=== PATIENT | female | born 1950 | race Caucasian/White ===

== ENCOUNTER 2021-08-28 12:41 | Day surgery (SDC) | payer MEDICARE ==
[~2021-08-28] VITALS: Ht 162.6 cm; Wt 63.0 kg
[~2021-08-28 12:41] MED LIST: AMLO10 PO; Advil200 M1 PO; BISHYD10 PO; LEVSOD75 PO; LISI20 PO; PRAV20
--- NOTE | 2021-08-28 16:44 | NUR ---
08/28/21 1644 Norma Verdugo PT RATING PAIN TO FINGER AT 5/10. ANESTHESIA ORDERS ONLY FOR MILD PAIN. ATTEMPTED TO CALL DR. ESPINAL, BUT DID NOT GET AN ANSWER. GAVE ORDERED DOSE OF FENTANYL 12.5 MCG IV X1 FOR PAIN. PAIN DOWN TO 3/10 PRIOR TO DISCHARGE.
== END 2021-08-28 16:38 | disposition home or self-care (01) ==
LOC: ORSCSDS 12:41
PROVIDERS: Orthopaedic Surgery
PROC: 0PSV04Z Reposition Left Finger Phalanx with Internal Fixation Device, Open Approach (ICD-10-PCS; principal; 2021-08-28 14:00)
DX: S62.617A Displaced fracture of proximal phalanx of left little finger, initial encounter for closed fracture (principal); I10 Essential (primary) hypertension; E03.9 Hypothyroidism, unspecified; E78.00 Pure hypercholesterolemia, unspecified; Z79.899 Other long term (current) drug therapy
CPT/HCPCS: A9270; J0690; J1100; J2405; J3010; J7120

== ENCOUNTER 2022-12-14 08:57 | Day surgery (SDC) | payer MEDICARE ==
[~2022-12-14] VITALS: Ht 160 cm; Wt 61.3 kg
== END 2022-12-14 11:42 | disposition home or self-care (01) ==
LOC: ORSCSDS 08:57
PROVIDERS: Surgery
PROC: 0DJD8ZZ Inspection of Lower Intestinal Tract, Via Natural or Artificial Opening Endoscopic (ICD-10-PCS; principal; 2022-12-14 10:30)
DX: Z12.11 Encounter for screening for malignant neoplasm of colon (principal); Z86.010 Personal history of colon polyps; I10 Essential (primary) hypertension; E78.5 Hyperlipidemia, unspecified; E03.9 Hypothyroidism, unspecified; Z79.899 Other long term (current) drug therapy
CPT/HCPCS: J2704; J7120

== ENCOUNTER 2024-09-19 07:34 | Day surgery (SDC) | payer MEDICARE ==
[~2024-09-19] VITALS: Ht 160 cm; Wt 61.1 kg
[~2024-09-19 07:34] MED LIST changes: +Balanced Salt Epinephrine Irrigation Solution 500 mL IR SCH; +Lidocaine HCl/Pf 1% 5 ML VIAL XX SCH; +Moxifloxacin HCL 0.5 MG/0.1 ML 0.4MLSYR LEFTEYE SCH; +PHENYLEPHRINE\\TROPICAMIDE\\TETRACAINE OPHTHALMIC DILATING SOLN LEFTEYE PRN; +Povidone-Iodine 450 DROP/30 ML Solution LEFTEYE SCH; +Povidone-Iodine 450 DROP/30 ML Solution ONE; +Tetracaine HCl/Pf 0.5% Opth Soln 4 ml ONE; +Triamcinolone Inj Susp 40 MG / ML 1ML Vial INJ SCH; +Triamcinolone Inj Susp 40 MG / ML 1ML Vial ONE
[2024-09-19 09:27] VITALS: BP 159/63
== END 2024-09-19 09:44 | disposition home or self-care (01) ==
LOC: ORSCSDS 07:34
PROVIDERS: Ophthalmology
PROC: 08RK3JZ Replacement of Left Lens with Synthetic Substitute, Percutaneous Approach (ICD-10-PCS; principal; 2024-09-19 09:00)
DX: H25.813 Combined forms of age-related cataract, bilateral (principal); I10 Essential (primary) hypertension; E03.9 Hypothyroidism, unspecified; Z79.899 Other long term (current) drug therapy
CPT/HCPCS: J3301; V2632

== ENCOUNTER 2024-09-26 09:08 | Day surgery (SDC) | payer MEDICARE ==
[~2024-09-26] VITALS: Ht 160 cm; Wt 60.8 kg
[~2024-09-26 09:08] MED LIST changes: -Moxifloxacin HCL 0.5 MG/0.1 ML 0.4MLSYR LEFTEYE SCH; +Moxifloxacin HCL 0.5 MG/0.1 ML 0.4MLSYR RIGHTEYE SCH; -PHENYLEPHRINE\\TROPICAMIDE\\TETRACAINE OPHTHALMIC DILATING SOLN LEFTEYE PRN; +PHENYLEPHRINE\\TROPICAMIDE\\TETRACAINE OPHTHALMIC DILATING SOLN RIGHTEYE PRN; -Povidone-Iodine 450 DROP/30 ML Solution LEFTEYE SCH; +Povidone-Iodine 450 DROP/30 ML Solution RIGHTEYE SCH
[2024-09-26] MEDS ORDERED: Diazepam 2 MG Tab ONE (09:48)
--- NOTE | 2024-09-26 09:54 | NUR ---
09/26/24 0954 Ginger Thapa TAKEN AT 0830, PT RATED 3-4/10 AND STATED CALM AND SLEEPY. AFTER DISCUSSION WITH DR. LACKEY VALIUM 2MG GIVEN PO
--- NOTE | 2024-09-26 11:06 | NUR ---
09/26/24 1106 Thad Dugan PT INSTRUCTED TO MONITOR B/P AT HOME, AND FOLLOW UP WITH PCP NEEDED.
[2024-09-26 11:07] VITALS: BP 165/67
== END 2024-09-26 10:58 | disposition home or self-care (01) ==
LOC: ORSCSDS 09:08
PROVIDERS: Ophthalmology
PROC: 08RJ3JZ Replacement of Right Lens with Synthetic Substitute, Percutaneous Approach (ICD-10-PCS; principal; 2024-09-26 10:30)
DX: H25.811 Combined forms of age-related cataract, right eye (principal); Z96.1 Presence of intraocular lens; E03.9 Hypothyroidism, unspecified; I10 Essential (primary) hypertension; E78.5 Hyperlipidemia, unspecified; Z79.899 Other long term (current) drug therapy
CPT/HCPCS: A9270; J3301; V2632